=== PATIENT | female | born 1965 | race Caucasian/White ===

== ENCOUNTER 2023-08-13 06:41 | Emergency (ER) | payer OTHER, MEDICAID, SELFPAY ==
--- NOTE | 2023-08-13 06:47 | DI.RAD.S_ITS ---
PROCEDURE: XR SHOULDER LT MIN 2V INDICATIONS: L SHOULDER PAIN THINKS DISLOCATED TECHNIQUE: 3 views of the shoulder were acquired. COMPARISON: None. FINDINGS: Bones: No fractures or dislocations. Mild degenerative changes of the glenohumeral acromioclavicular joints. No suspicious bony lesions. Visualized ribs appear intact. Soft tissues: No suspicious soft tissue calcifications. IMPRESSION: No acute fracture or dislocation. Findings are concordant with preliminary interpretation provided by [facility]. Dictated by: Otto Lee M.D. on 08/13/2023 at 8:01 Approved by: Otto Lee M.D. on 08/13/2023 at 8:02
[2023-08-13 06:53] VITALS: BP 147/68; PULSE 88; RESP 18; TEMP 36; O2SAT 100; BMI 27.1
--- NOTE | 2023-08-13 07:16 | ED.EXTPRO ---
HPI - Extremity Problem General Chief complaint: Extremity Problem,Nontraumatic Stated complaint: dislocated shoulder left side Time Seen by Provider: 08/13/23 06:43 Source: patient Mode of arrival: Ambulatory History of Present Illness HPI Narrative: Patient here with daughter. Daughter is driving. Patient visiting here from out of town. Patient has history of bilateral severe rotator cuff injury. No repairs in the past. No prior history of dislocation to the shoulders or reductions. Patient awoke yesterday morning with left shoulder pain with limited range of motion. Patient states has had no problems with oxycodone and Dilaudid in the past. No numbness or tingling to the arm or hand. Shoulders to fingertips exposed. Related Data Previous Rx's Medication Instructions Recorded oxycodone-acetaminophen 5 mg-325 1 tab PO Q4-6H PRN pain #10 tabs 08/13/23 mg tablet (Percocet) Allergies Allergy/AdvReac Type Severity Reaction Status Date / Time hydrocodone Allergy Verified 08/13/23 07:02 morphine Allergy Verified 08/13/23 07:02 NSAIDS (Non-Steroidal Allergy Verified 08/13/23 07:02 Anti-Inflamma Penicillins Allergy Verified 08/13/23 07:02 Sulfa (Sulfonamide Allergy Verified 08/13/23 07:02 Antibiotics) Review of Systems Review of Systems Narrative: GENERAL: negative chills, fatigue, malaise, fever, sweats. HEENT: negative sinus pain, ear pain, sore throat RESPIRATORY: negative dyspnea, cough CARDIOVASCULAR: negative chest pain, palpitations GASTROINTESTINAL: negative nausea, vomiting, abdominal pain : negative dysuria, frequency, hematuria MUSCULOSKELETAL: Positive muscle or bony pain SKIN: negative rash, skin lesions NEUROLOGIC: negative weakness, numbness ROS Unobtainable: All systems reviewed & are unremarkable except as noted in HPI and below Patient History Social History Smoking Status: Current every day smoker Smoking Status: Current every day smoker Substance Use Type: does not use Exam Narrative Exam Narrative: GENERAL: in no distress, not toxic not dyspneic HEAD: Normocephalic. EYES: Pupils equal round ENT: Mucous membranes moist. NECK: Trachea midline. EXTREMITIES: No gross deformities. Examination left upper extremity. No gross deformity of the shoulder. However limited abduction and bringing the left hand to right shoulder. Strong inspecting engineer and radial pulses light touch intact to deltoid and fingertips and thumb. Nontender wrist and elbow. Patient unable to bring hand above the level of the shoulder. NEURO: AOx4. SKIN: Warm and dry PSYCH: Not anxious, is cooperative Initial Vital Signs Initial Vital Signs: Vital Signs Temperature 96.8 F L 08/13/23 06:53 Pulse Rate 88 08/13/23 06:53 Respiratory Rate 18 08/13/23 06:53 Blood Pressure 147/68 H 08/13/23 06:53 Pulse Oximetry 100 08/13/23 06:53 Oxygen Delivery Method Room Air 08/13/23 06:53 Course Orders Ordered: Discontinued Medications Oxycodone/Acetaminophen (Oxycodone/Acetaminophen 5/325 Tablet) 2 tab PO NOW ONE Stop: 08/13/23 07:24 Last Admin: 08/13/23 08:02 Dose: 2 tab Documented By: CHRISTINA Vital Signs Vital signs: Vital Signs - 8 hr 08/13/23 06:53 08/13/23 07:43 08/13/23 07:44 Temperature 96.8 F L Pulse Rate 88 80 Respiratory Rate 18 Blood Pressure 147/68 H Pulse Oximetry 100 96 98 Oxygen Delivery Method Room Air 08/13/23 07:44 Temperature Pulse Rate Respiratory Rate Blood Pressure 131/77 Pulse Oximetry Oxygen Delivery Method MDM - Extremity (Nontraumatic) Imaging Data Extremity x-ray #1: Radiologist's Impression: [place] [address] XRay Report Signed Patient: Sallie Donaldson MR#: [id number] : 1965 Acct:[id number] Age/Sex: 57 / F Date of Service: 08/13/23 Loc: ED Accession Number: [id number] Procedure: XR shoulder LT min 2V Ordering Provider: Anastacia Ellington MD PROCEDURE: XR SHOULDER LT MIN 2V INDICATIONS: L SHOULDER PAIN THINKS DISLOCATED TECHNIQUE: 3 views of the shoulder were acquired. COMPARISON: None. FINDINGS: Bones: No fractures or dislocations. Mild degenerative changes of the glenohumeral acromioclavicular joints. No suspicious bony lesions. Visualized ribs appear intact. Soft tissues: No suspicious soft tissue calcifications. IMPRESSION: No acute fracture or dislocation. Findings are concordant with preliminary interpretation provided by [facility]. Dictated by: Otto Lee M.D. on 08/13/2023 at 8:01 Approved by: Otto Lee M.D. on 08/13/2023 at 8:02 Extremity x-ray #2: Radiologist's Impression: [address] [address] [address] Scan Report Signed Patient: Sallie Donaldson MR#: [id number] : 1965 Acct:[id number] Age/Sex: 57 / F Date of Service: 08/13/23 Loc: ED Accession Number: [id number] Procedure: CT UE LT wo con Ordering Provider: Josh Rodriguez MD PROCEDURE: CT UE LT WO CON INDICATIONS: Left shoulder pain/injury TECHNIQUE: Noncontrast 0.75 mm thick sections acquired from the acromioclavicular joint to the inferior scapula, with coronal and sagittal reformatting. COMPARISON: None. FINDINGS: Image quality: Excellent. Bones: No acute fracture dislocation. There are mild degenerative changes of the acromioclavicular and glenohumeral joint with osteophytosis and mild joint space narrowing. Subacute left anterior 2nd rib fracture. Soft tissues: Mild paraseptal emphysematous changes of the apices. Soft tissues was grossly unremarkable. Please note, evaluation of the rotator cuff is limited by CT. IMPRESSION: No acute fracture or dislocation. Dictated by: Otto Lee M.D. on 08/13/2023 at 8:16 Approved by: Otto Lee M.D. on 08/13/2023 at 8:19 [facility] Narrative Medical decision making narrative: Patient here with daughter. Daughter is driving. Patient visiting here from out of town. Patient has history of bilateral severe rotator cuff injury. No repairs in the past. No prior history of dislocation to the shoulders or reductions. Patient awoke yesterday morning with left shoulder pain with limited range of motion. Patient states has had no problems with oxycodone and Dilaudid in the past. No numbness or tingling to the arm or hand. Shoulders to fingertips exposed. After history and exam x-ray left shoulder, possible reduction, pain control [facility] CC: Left shoulder pain Complicating co-morbidities: History of rotator cuff injury bilaterally Data collected from: Patient and daughter Medical records reviewed: No recent visits here for this complaint Differential considered: Includes but not limited to shoulder dislocation/fracture/subluxation Exam documented above, pertinent findings include: Limited range of motion of the left shoulder Imaging studies independently reviewed: Left shoulder x-ray no fracture or dislocation. There are degenerative changes. CT left shoulder no fracture or dislocation Consultations: None indicated at this time Treatments: Percocet/sling Re-evaluations: 8:48 a.m. Pain is controlled. Patient resting comfortably. Reviewed with patient and daughter results. Likely strained her shoulder over the course of the night the other day while sleeping. Referral for Orthopedics provided. Daughter is driving. Not toxic at discharge. Return precautions reviewed they desire discharge home Discussion: Appropriate for discharge home. Appropriate for short course of pain medication as patient likely strained her shoulder during her sleep, she has existing severe rotator cuff problems she states. She has not had surgical intervention or referrals. I will provide referral for her. Daughter is driving. Return precautions reviewed. Exam is reassuring as well as imaging. Not toxic at discharge. Diagnosis: Left shoulder strain Discharge Plan Departure Patient Disposition: Home Clinical Impression: Chronic left shoulder pain Left shoulder strain Qualifiers: Encounter type: initial encounter Qualified Code(s): S46.912A - Strain of unspecified muscle, fascia and tendon at shoulder and upper arm level, left arm, initial encounter Instructions: DI for Rotator Cuff Repair, DI for Shoulder Pain Activity Restrictions/Additional Instructions: Please use sling for comfort. Please call provided orthopedic office today for evaluation of your shoulder pain and possible surgical intervention. No driving operating machinery today or when taking prescribed pain medication. Return if worse if any questions or concerns Prescriptions: New oxycodone-acetaminophen [Percocet] 5-325 mg tablet 1 tab PO Q4-6H PRN (Reason: pain) Qty: 10 0RF Referrals: Chris Morataya MD [Physician] - Stand Alone Forms: Patient Portal/API
--- NOTE | 2023-08-13 07:23 | DI.CT.S_ITS ---
PROCEDURE: CT UE LT WO CON INDICATIONS: Left shoulder pain/injury TECHNIQUE: Noncontrast 0.75 mm thick sections acquired from the acromioclavicular joint to the inferior scapula, with coronal and sagittal reformatting. COMPARISON: None. FINDINGS: Image quality: Excellent. Bones: No acute fracture dislocation. There are mild degenerative changes of the acromioclavicular and glenohumeral joint with osteophytosis and mild joint space narrowing. Subacute left anterior 2nd rib fracture. Soft tissues: Mild paraseptal emphysematous changes of the apices. Soft tissues was grossly unremarkable. Please note, evaluation of the rotator cuff is limited by CT. IMPRESSION: No acute fracture or dislocation. Dictated by: Otto Lee M.D. on 08/13/2023 at 8:16 Approved by: Otto Lee M.D. on 08/13/2023 at 8:19
[2023-08-13 07:43] VITALS: O2SAT 96
[2023-08-13 07:44] VITALS: BP 131/77; PULSE 80; O2SAT 98
[2023-08-13 08:01] VITALS: PULSE 93; O2SAT 99
[2023-08-13] MEDS: OXYCODONE/ACETAMINOPHEN 5/325 TABLET 2 TAB PO (08:02)
[2023-08-13 08:30] VITALS: PULSE 86; O2SAT 97
[2023-08-13 09:08] VITALS: BP 128/73; PULSE 68; RESP 18; TEMP 36.7; O2SAT 99
== END 2023-08-13 09:09 | disposition home or self-care (01) ==
PROVIDERS: Emergency Provider Emergency Medicine
DX: S46.912A Strain of unspecified muscle, fascia and tendon at shoulder and upper arm level, left arm, initial encounter (principal); M25.512 Pain in left shoulder
CPT/HCPCS: 73030; 73200; 99283; 99284